=== PATIENT | female | born 1980 | race Caucasian/White ===

== ENCOUNTER → 2021-06-24 | Outpatient (CLI) | payer OTHER ==
[~2021-06-24] MED LIST: ACETAMINOPHEN500 M1 PO; ADIPEX-P37.5 M1 PO; BUSPIRONE HCL10 MG PO; LISINOPRIL10 MG PO; NORCO5 PO; PROTONIX40 M2 PO
== END ==
LOC: M.LAB 13:57
PROVIDERS: ATTEND Surgery
DX: Z20.822 Contact with and (suspected) exposure to COVID-19 (principal)

== ENCOUNTER → 2021-06-25 | Day surgery (SDC) | payer OTHER ==
--- NOTE | ~2021-06-25 | OP ---
[facility] [address] [place] [address] OPERATIVE REPORT Name: JU HARRELL Room: [facility]#: [id number] Admission: 06/25/21 Attend Phys: Catarino Junior Discharge: Date of : 80 Report #: [id number] THIS REPORT FOR: cc: Venkatesh Bustos,Venkatesh North,Catarino Tolliver MD ~ DATE OF SURGERY: 06/25/2021 PREOPERATIVE DIAGNOSIS: Biliary dyskinesia. POSTOPERATIVE DIAGNOSIS: Biliary dyskinesia. OPERATION: Laparoscopic cholecystectomy. SURGEON: Catarino Junior MD. ANESTHESIA: General. ESTIMATED BLOOD LOSS: Minimal. SPECIMENS: Gallbladder. DESCRIPTION OF PROCEDURE: After informed consent was obtained, the patient was brought to the operating room and placed supine. SCDs were placed and working, preoperative antibiotics were administered, general anesthesia was induced. The abdomen was prepped and draped in the usual sterile fashion. A 10 mm incision was made above the umbilicus. Fascia was incised and a trocar was placed. Pneumoperitoneum was established. Three right upper quadrant 5 mm ports were placed. Gallbladder was grasped at the fundus and retracted cephalad. Infundibulum was grasped and retracted laterally. I dissected out the cystic duct and cystic artery. Cystic duct and artery were clipped and ligated leaving 2 clips on the remaining duct and 1 on the remaining artery. Gallbladder was then taken off the liver bed with electrocautery. It was placed into an Endopouch and removed. The fascia was then closed with a ooakgw-eb-lgrrk 0 Vicryl. Skin was closed with 4-0 Monocryl. Incisions were dressed with Steri-Strips. COMPLICATIONS: None. DISPOSITION: The patient was taken to recovery in satisfactory condition. By: 1440 1519Joash Junior MD /nt
[2021-06-25 07:48] LABS: HEMATOCRIT 42.2 % (37.0-47.0); HEMOGLOBIN 14.2 gm/dL (12.0-15.0); MCH 31.6 pg (26.0-34.0); MCHC 33.5 g/dL (28.0-37.0); MCV 94.2 fL (80.0-100.0); MPV 7.4 fl. (7.2-11.1); RBC 4.49 mil/uL (4.20-5.00); RDW-CV 13.2 % (10.5-14.5); WBC 5.9 thou/uL (4.0-11.0)
[2021-06-25 07:52] LABS: CALCIUM 8.9 mg/dL (8.5-10.1); CREATININE 0.8 mg/dL (0.6-1.3); POTASSIUM 4.3 mmol/L (3.5-5.1)
[2021-06-25 07:57] LABS: TOTAL BILIRUBIN 0.3 mg/dL (<0.1-1.0); TOTAL PROTEIN 7.4 g/dL (6.4-8.2)
--- NOTE | 2021-06-25 09:59 | EKG ---
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 06/25/21 0959 0751 0751 Markus Wilson MD, [facility] /EPI
--- NOTE | 2021-06-30 15:07 | PATH ---
[address] [address] PATHOLOGY RPT PROCEDURE Name: JU HARRELL Room: [facility]#: [id number] Admission: 06/25/21 Date of : 80 Discharge: Report #: [id number] Path Case #: [id number] [facility] Accession Number: [id number] . 01 Material submitted: . gallbladder - CALCULUS OF GALLBLADDER . 01 Clinical history: . LAPAROSCOPIC CHOLECYSTECTOMY . 02 Diagnosis: Gallbladder: - Chronic cholecystitis with cholesterolosis. See comment. (DERRICK:kelley; 06/28/2021) [facility] 06/28/2021 1828 Local . 02 Comment: No gallstones were identified in the submitted specimen. (DERRICK:kelley; 06/28/2021) . 02 Electronically signed: . Yaya Rodriguez MD, Pathologist NPI- [id number] . 01 Gross description: . 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 ([facility]; 06/26/2021) [facility] 06/28/2021 1827 Local . 02 Pathologist provided ICD-10: K81.1, K82.4 . 02 CPT . 081277 Specimen Comment: A courtesy copy of this report has been sent to [phone], [phone] Specimen Comment: 0113 Specimen Comment: Report sent to / [place] [address] PATHOLOGY RPT PROCEDURE Name: JU HARRELL Room: [facility]#: [id number] Admission: 06/25/21 Date of : 80 Discharge: Report #: [id number] Path Case #: [id number] Specimen Comment: A duplicate report has been generated due to demographic updates. Performed at: 01 [facility] [place] [address] [place] [address] [address], [place], [place] [id number] MD Tacos Turcios MD Phone: [phone] Performed at: 02 [facility] [address] [place], [place], [place] [id number] MD Yaya Rodriguez MD Phone: [phone]
== END | disposition home or self-care (01) ==
LOC: M.SUR 05:22
PROVIDERS: ATTEND Surgery
DX: K81.1 Chronic cholecystitis (principal); R10.11 Right upper quadrant pain; F17.210 Nicotine dependence, cigarettes, uncomplicated; Z79.899 Other long term (current) drug therapy; Z88.8 Allergy status to other drugs, medicaments and biological substances; Z20.822 Contact with and (suspected) exposure to COVID-19; Z98.51 Tubal ligation status